=== PATIENT | female | born 1965 | race Caucasian/White ===

== ENCOUNTER 2016-12-18 22:17 | Emergency (ER) | payer OTHER ==
[~2016-12-18] VITALS: Ht 172.7 cm; Wt 132.9 kg
[~2016-12-18 22:17] MED LIST: ALDACTONE100 MG PO; ASPIRIN325 PO; BACTRIM 400-801 EACH PO; BACTROBAN CREAM30 G1 TOP; CELEXA40 MG PO; CIPROFLOXACIN500 M1 PO; COUMADIN7.5 MG PO; DOXYCYCLINE 10100 MG PO; DYAZIDE; GEMFIBROZIL OR; GLUCOPHAGE1000 MG PO; HYDROCHLOROTHIA25 M2 PO; HYDROCODONE-AP1 EAC6 PO; LEXAPRO 10 MG T10 MG PO; MIRAPEX0.5 MG PO; NORCO 5-325 TA1 EACH PO; PEPCID40 MG PO; PHENAZOPYRIDIN200 M2 PO; PLAVIX 75 MG TA75 M1 PO; PLAVIX 75 MG TA75 MG PO; PRAMIPEXOLE DI0.5 MG PO; PREDNISONE 20 M20 M1 PO; SANTYL OINTMENT30 G1 TP; SENNA S TABLET1 EACH PO; TORSEMIDE 5 MG PO; ZANTAC 150MG T150 M1 PO; ZANTAC150 M2 PO; ZOFRAN4 MG PO
[2016-12-19 01:08] LABS: HEMOGLOBIN 15.3 gm/dL (12.0-15.0); MCH 31.2 pg (26.0-34.0); MCHC 34.7 g/dL (28.0-37.0); MCV 89.9 fL (80.0-100.0); RBC 4.89 mil/uL (4.20-5.00); WBC 11.1 thou/uL (4.0-11.0)
[2016-12-19 01:15] LABS: CALCIUM 8.6 mg/dL (8.5-10.1); CREATININE 0.8 mg/dL (0.6-1.0); POTASSIUM 3.9 mmol/L (3.5-5.1)
[2016-12-19] MEDS ORDERED: ZPAK PO (01:51)
[2016-12-19] MEDS ORDERED: PREDNISONE 20 M20 MG PO (01:51)
[2016-12-19] MEDS ORDERED: OXYCODONE HCL 55 MG PO (01:51)
[2016-12-19] MEDS ORDERED: VENTOLIN HFA 1818 GM INH (01:51)
[2016-12-19 03:00] VITALS: BP 109/71
== END 2016-12-19 03:02 | disposition home or self-care (01) ==
LOC: ER 22:17
PROVIDERS: Emergency Medicine
DX: R06.02 Shortness of breath (principal); R05 Cough; R06.2 Wheezing; G47.30 Sleep apnea, unspecified; I10 Essential (primary) hypertension; F10.99 Alcohol use, unspecified with unspecified alcohol-induced disorder; F17.210 Nicotine dependence, cigarettes, uncomplicated; Z86.73 Personal history of transient ischemic attack (TIA), and cerebral infarction without residual deficits; Z86.718 Personal history of other venous thrombosis and embolism; Z88.0 Allergy status to penicillin; Z88.1 Allergy status to other antibiotic agents